=== PATIENT | female | born 2000 | race Two or more races ===

== ENCOUNTER 2022-07-31 00:09 | Emergency (ER) | payer BC ==
[~2022-07-31] VITALS: Ht 162.6 cm; Wt 81.6 kg
[2022-07-31 00:15] VITALS: BP_SYST 118
[2022-07-31] MEDS ORDERED: KETOROLAC TROMETHAMINE 30 MG VIAL IVP ONE (01:00)
[2022-07-31] MEDS ORDERED: NACL 0.9% 1,000 ML IV ONE (01:00)
[2022-07-31] MEDS ORDERED: DIPHENHYDRAMINE INJ 50 MG/ML VIAL IVP ONE (01:00)
[2022-07-31] MEDS ORDERED: METOCLOPRAMIDE HCL 10 MG/2 ML VIAL IVP ONE (01:00)
[2022-07-31] MEDS ORDERED: MORPHINE 4 MG INJ. 4 MG/ML VIAL IVP ONE (01:45)
[2022-07-31 02:40] LABS: BASOPHILS % (AUTO) 0.5 % (0.0-2.0); EOSINOPHILS % (AUTO) 0.9 % (0.0-4.0); HEMOGLOBIN 9.4 g/dL (12.0-16.0); LYMPHOCYTES # (AUTO) 0.6 K/uL (1.0-5.5); LYMPHOCYTES % (AUTO) 12.2 % (20.5-51.5); MEAN CORPUSCULAR HEMOGLOBIN 22 pg (27-31); MEAN CORPUSCULAR HGB CONC 32 % (32-36); MEAN CORPUSCULAR VOLUME 68 fL (79.0-98.0); MONOCYTES # (AUTO) 0.3 K/uL (0.0-1.0); MONOCYTES % (AUTO) 6.4 % (1.7-9.3); NEUTROPHILS # (AUTO) 4.2 K/uL (1.8-7.7); PLATELET COUNT (AUTO) 151 K/uL (130-430); RED BLOOD CELL COUNT(AUTO) 4.24 MIL/uL (4.2-6.2); RED CELL DISTRIBUTION WIDTH 16.9 % (9.0-15.0); WHITE BLOOD COUNT (AUTO) 5.2 K/uL (4.8-10.8)
[2022-07-31 03:02] LABS: CREATININE 1.03 mg/dL (0.55-1.30); POTASSIUM 3.7 mmol/L (3.5-5.1); TOTAL BILIRUBIN 0.2 mg/dL (0.0-1.0)
[2022-07-31 03:03] LABS: ALBUMIN 2.9 g/dL (3.4-4.8)
[2022-07-31] MEDS ORDERED: HYDR-3917 PO (04:29)
[2022-07-31] MEDS ORDERED: ONDA-8 TL (04:29)
[2022-07-31 04:39] VITALS: BP_SYST 101
== END 2022-07-31 04:39 | disposition home or self-care (01) ==
LOC: SED 00:09
DX: R51.9 Headache, unspecified (principal); Z79.899 Other long term (current) drug therapy
CPT/HCPCS: 99285; 96374; 96375; 96361; 80053; 85025; 36415; 81025; 83605; J1200; J1885; J2765; J2270; J7030

== ENCOUNTER 2022-10-19 17:45 | Emergency (ER) | payer BC ==
[~2022-10-19] VITALS: Ht 162.6 cm; Wt 81.6 kg
[~2022-10-19 17:45] MED LIST: HYDR-3917 PO; ONDA-8 TL
[2022-10-19] MEDS ORDERED: DIPHENHYDRAMINE INJ 50 MG/ML VIAL IVP ONE (18:45)
[2022-10-19] MEDS ORDERED: ONDANSETRON HCL 4 MG/2 ML VIAL IVP ONE (18:45)
[2022-10-19] MEDS ORDERED: NACL 0.9% 1,000 ML IV ONE (18:45)
[2022-10-19] MEDS ORDERED: METOCLOPRAMIDE HCL 10 MG/2 ML VIAL IVP ONE (18:45)
[2022-10-19 19:00] VITALS: BP_SYST 116
[2022-10-19 19:09] LABS: BASOPHILS % (AUTO) 0.2 % (0.0-2.0); EOSINOPHILS % (AUTO) 0.5 % (0.0-4.0); HEMATOCRIT 35.6 % (36-48); HEMOGLOBIN 11.3 g/dL (12.0-16.0); LYMPHOCYTES # (AUTO) 0.6 K/uL (1.0-5.5); LYMPHOCYTES % (AUTO) 9.8 % (20.5-51.5); MEAN CORPUSCULAR HEMOGLOBIN 22 pg (27-31); MEAN CORPUSCULAR HGB CONC 32 % (32-36); MEAN CORPUSCULAR VOLUME 69 fL (79.0-98.0); MONOCYTES # (AUTO) 0.4 K/uL (0.0-1.0); MONOCYTES % (AUTO) 6.3 % (1.7-9.3); NEUTROPHILS # (AUTO) 5.2 K/uL (1.8-7.7); NEUTROPHILS % (AUTO) 83.2 % (40.0-70.0); PLATELET COUNT (AUTO) 154 K/uL (130-430); RED BLOOD CELL COUNT(AUTO) 5.15 MIL/uL (4.2-6.2); RED CELL DISTRIBUTION WIDTH 17.8 % (9.0-15.0); WHITE BLOOD COUNT (AUTO) 6.2 K/uL (4.8-10.8)
[2022-10-19 19:13] LABS: CALCIUM 9.1 mg/dL (8.4-11.0); CREATININE 0.6 mg/dL (0.55-1.30)
[2022-10-19 19:13] LABS: BILIRUBIN,URINE NEGATIVE (NEGATIVE); BLOOD, URINE 1+ (NEGATIVE); COLOR,URINE YELLOW (YELLOW); GLUCOSE,URINE TRACE (NEGATIVE); KETONES,URINE 2+ (NEGATIVE); LEUKOCYTE ESTERASE ,URINE 2+ (NEGATIVE); NITRITE, URINE NEGATIVE (NEGATIVE); PROTEIN URINE TRACE (NEGATIVE)
[2022-10-19 19:24] LABS: CLARITY/URINE HAZY (CLEAR); UROBILINOGEN,URINE >=8 (0.2-1.0)
[2022-10-19 19:25] LABS: BACTERIA,URINE FEW /HPF (None Seen); RBC,URINE NONE SEEN /HPF (0-3); WBC,URINE 20-50 /HPF (0-3)
[2022-10-19 19:26] LABS: MUCUS,URINE None Seen /LPF (None Seen)
[2022-10-19 19:39] LABS: ALBUMIN 3.7 g/dL (3.4-4.8); TOTAL BILIRUBIN 0.4 mg/dL (0.0-1.0)
[2022-10-19] MEDS ORDERED: D5NS 1,000 ML IV ONE (20:00)
[2022-10-19] MEDS ORDERED: METOCLOPRAMIDE HCL 10 MG/2 ML VIAL ONE (20:56)
[2022-10-19] MEDS ORDERED: ONDANSETRON HCL 4 MG/2 ML VIAL ONE (20:56)
[2022-10-19] MEDS ORDERED: DIPHENHYDRAMINE INJ 50 MG/ML VIAL ONE (20:57)
[2022-10-19] MEDS ORDERED: cefTRIAXone 1 GM in D5W 50 ML IV ONE (21:15)
[2022-10-19] MEDS ORDERED: cefTRIAXone 1 GM IVPB PREMIX 50 ML IV ONE (21:19)
[2022-10-19] MEDS ORDERED: DOXY1TAB3 PO (22:28)
[2022-10-19] MEDS ORDERED: CEPH250C PO (22:28)
[2022-10-19 23:34] VITALS: BP_SYST 124
== END 2022-10-19 23:34 | disposition home or self-care (01) ==
LOC: SED 17:45
DX: O21.0 Mild hyperemesis gravidarum (principal); O23.41 Unspecified infection of urinary tract in pregnancy, first trimester; Z3A.08 8 weeks gestation of pregnancy; Z79.899 Other long term (current) drug therapy
CPT/HCPCS: 99284; 96365; 96375; 76801; 80053; 81000; 84702; 83690; 85025; 87086; 36415; 76817; 81025; J0696; J1200; J2765; J2405

== ENCOUNTER 2023-12-28 19:34 | Emergency (ER) | payer BC ==
[~2023-12-28] VITALS: Ht 162.6 cm; Wt 81.6 kg
[~2023-12-28 19:34] MED LIST changes: +CEPH250C PO; +DOXY1TAB3 PO
[2023-12-28 19:44] VITALS: BP_SYST 126; PULSE 69; RESP 16; TEMP 97.8; O2SAT 98
[2023-12-28] MEDS: NACL 0.9% 1,000 ML IV ONE (20:14)
[2023-12-28 20:19] LABS: BILIRUBIN,URINE 2+ (NEGATIVE); BLOOD, URINE NEGATIVE (NEGATIVE); CLARITY/URINE CLEAR (CLEAR); GLUCOSE,URINE NEGATIVE (NEGATIVE); KETONES,URINE 3+ (NEGATIVE); LEUKOCYTE ESTERASE ,URINE NEGATIVE (NEGATIVE); NITRITE, URINE NEGATIVE (NEGATIVE); PH,URINE 6.5 (5.0-8.0); PROTEIN URINE 1+ (NEGATIVE)
[2023-12-28] MEDS: ONDANSETRON HCL 4 MG/2 ML VIAL IVP ONE (20:20)
[2023-12-28 20:25] LABS: BASOPHILS % (AUTO) 0.2 % (0.0-2.0); EOSINOPHILS % (AUTO) 0.1 % (0.0-4.0); HEMATOCRIT 32.2 % (36-48); HEMOGLOBIN 10.1 g/dL (12.0-16.0); LYMPHOCYTES # (AUTO) 0.4 K/uL (1.0-5.5); LYMPHOCYTES % (AUTO) 7.6 % (20.5-51.5); MEAN CORPUSCULAR HEMOGLOBIN 21 pg (27-31); MEAN CORPUSCULAR HGB CONC 31 % (32-36); MEAN CORPUSCULAR VOLUME 67 fL (79.0-98.0); MONOCYTES # (AUTO) 0.2 K/uL (0.0-1.0); MONOCYTES % (AUTO) 4.4 % (1.7-9.3); NEUTROPHILS # (AUTO) 4.4 K/uL (1.8-7.7); NEUTROPHILS % (AUTO) 87.7 % (40.0-70.0); PLATELET COUNT (AUTO) 164 K/uL (130-430); RED BLOOD CELL COUNT(AUTO) 4.83 MIL/uL (4.2-6.2); RED CELL DISTRIBUTION WIDTH 17.2 % (9.0-15.0); WHITE BLOOD COUNT (AUTO) 5.1 K/uL (4.8-10.8)
[2023-12-28 20:27] LABS: SERUM HCG (QUALITATIVE) NEGATIVE (NEGATIVE)
[2023-12-28] MEDS: KETOROLAC TROMETHAMINE 30 MG VIAL IVP ONE (20:27)
[2023-12-28] MEDS: PANTOPRAZOLE SODIUM 40 MG/VIAL (PROTONIX) IVP ONE (20:27)
[2023-12-28 20:28] LABS: COLOR,URINE AMBER (YELLOW)
[2023-12-28 20:29] LABS: CALCIUM 8.2 mg/dL (8.4-11.0); CREATININE 0.72 mg/dL (0.55-1.30); POTASSIUM 3.4 mmol/L (3.5-5.1)
[2023-12-28 20:31] LABS: BACTERIA,URINE RARE /HPF (None Seen); MUCUS,URINE None Seen /LPF (None Seen); RBC,URINE NONE SEEN /HPF (0-3); WBC,URINE 0-3 /HPF (0-3)
[2023-12-28 20:33] LABS: ALBUMIN 3.4 g/dL (3.4-4.8); BILIRUBIN,DIRECT 0.5 mg/dL (0.0-0.3); TOTAL PROTEIN, SERUM 7.4 g/dL (6.4-8.3)
[2023-12-28 20:37] LABS: HYPOCHROMASIA 1+
[2023-12-28 20:38] LABS: ANISOCYTOSIS 1+; OVALOCYTES FEW
[2023-12-28] MEDS ORDERED: OMEP20CA15 PO (21:10)
[2023-12-28] MEDS ORDERED: ONDA-8 TL (21:10)
[2023-12-28 21:23] VITALS: BP_SYST 126; PULSE 69; RESP 16; TEMP 97.8; O2SAT 98
== END 2023-12-28 21:23 | disposition home or self-care (01) ==
LOC: SED 19:34
DX: A08.4 Viral intestinal infection, unspecified (principal); R11.2 Nausea with vomiting, unspecified; R19.7 Diarrhea, unspecified; Z79.899 Other long term (current) drug therapy
CPT/HCPCS: 99284; 96374; 96375; 96361; 80076; 80048; 81001; 84703; 83690; 85025; 36415; 81000; 81015; J1885; J2405; C9113; J7030

== ENCOUNTER 2024-05-05 10:09 | Emergency (ER) | payer BC ==
[~2024-05-05] VITALS: Ht 162.6 cm; Wt 86.2 kg
[~2024-05-05 10:09] MED LIST changes: +OMEP20CA15 PO
[2024-05-05 10:16] VITALS: BP_SYST 129; PULSE 85; RESP 18; TEMP 98.3; O2SAT 98
[2024-05-05 10:36] LABS: BASOPHILS % (AUTO) 0.4 % (0.0-2.0); EOSINOPHILS % (AUTO) 1.2 % (0.0-4.0); HEMATOCRIT 30.6 % (36-48); HEMOGLOBIN 9.4 g/dL (12.0-16.0); LYMPHOCYTES # (AUTO) 1.1 K/uL (1.0-5.5); LYMPHOCYTES % (AUTO) 29.1 % (20.5-51.5); MEAN CORPUSCULAR HEMOGLOBIN 20 pg (27-31); MEAN CORPUSCULAR HGB CONC 31 % (32-36); MEAN CORPUSCULAR VOLUME 65 fL (79.0-98.0); MONOCYTES # (AUTO) 0.3 K/uL (0.0-1.0); NEUTROPHILS # (AUTO) 2.3 K/uL (1.8-7.7); NEUTROPHILS % (AUTO) 61.3 % (40.0-70.0); RED BLOOD CELL COUNT(AUTO) 4.72 MIL/uL (4.2-6.2); RED CELL DISTRIBUTION WIDTH 18.5 % (9.0-15.0); WHITE BLOOD COUNT (AUTO) 3.7 K/uL (4.8-10.8)
[2024-05-05 10:41] LABS: BILIRUBIN,URINE NEGATIVE (NEGATIVE); BLOOD, URINE 3+ (NEGATIVE); CLARITY/URINE CLOUDY (CLEAR); COLOR,URINE YELLOW (YELLOW); GLUCOSE,URINE NEGATIVE (NEGATIVE); KETONES,URINE NEGATIVE (NEGATIVE); LEUKOCYTE ESTERASE ,URINE TRACE (NEGATIVE); NITRITE, URINE NEGATIVE (NEGATIVE); PH,URINE 7.5 (5.0-8.0); PROTEIN URINE 1+ (NEGATIVE)
[2024-05-05 10:48] LABS: PROTHROMBIN TIME 10.8 SECS (9.5-12.5)
[2024-05-05 10:54] LABS: BACTERIA,URINE FEW /HPF (None Seen); RBC,URINE 20-50 /HPF (0-3); WBC,URINE 0-3 /HPF (0-3)
[2024-05-05 11:38] LABS: ANISOCYTOSIS 1+; HYPOCHROMASIA 2+; OVALOCYTES FEW; TARGET CELLS RARE
[2024-05-05 11:39] LABS: PLATELET COUNT (AUTO) 216 K/uL (130-430)
[2024-05-05 12:34] VITALS: BP_SYST 99; PULSE 82; RESP 20; TEMP 97.2; O2SAT 100
== END 2024-05-05 14:05 | disposition home or self-care (01) ==
LOC: SED 10:09
DX: O20.0 Threatened abortion (principal); Z3A.01 Less than 8 weeks gestation of pregnancy; Z79.899 Other long term (current) drug therapy; Z79.2 Long term (current) use of antibiotics
CPT/HCPCS: 36415; 76801; 76802; 81000; 81001; 81015; 81025; 84702; 85025; 85610; 85730; 86900; 86901; 99284